=== PATIENT | female | born 1990 | race Two or more races ===

== ENCOUNTER 2019-05-12 17:00 | Emergency (ER) | payer MEDICAID ==
[~2019-05-12] VITALS: Ht 170.2 cm; Wt 90.7 kg
[2019-05-12 19:40] VITALS: BP 145/72
[2019-05-12] MEDS ORDERED: BACLOFEN 10 MG TAB PO ONE (20:15)
[2019-05-12] MEDS ORDERED: KETOROLAC TROMETH 60MG/2ML VIAL IM ONE (20:15)
== END 2019-05-12 20:44 | disposition home or self-care (01) ==
LOC: ER 17:00
DX: S33.5XXA Sprain of ligaments of lumbar spine, initial encounter (principal); N39.0 Urinary tract infection, site not specified; X58.XXXA Exposure to other specified factors, initial encounter; Y93.89 Activity, other specified; Y92.89 Other specified places as the place of occurrence of the external cause; Y99.8 Other external cause status
CPT/HCPCS: 72100; 81002; 96372; 99283; J1885